=== PATIENT | female | born 1960 | race Caucasian/White ===

== ENCOUNTER 2025-04-04 08:44 | Outpatient (CLI) | payer MEDICARE | END 2025-04-04 08:45 | disposition home or self-care (01) | LOC: NM 08:44 | PROVIDERS: ATTEND Psychiatry & Neurology Neurology | DX: R25.1 Tremor, unspecified (principal); Z82.0 Family history of epilepsy and other diseases of the nervous system | CPT/HCPCS: 78803; A9584 ×2 ==